=== PATIENT | female | born 1940 | race Caucasian/White ===

== ENCOUNTER 2016-11-08 13:30 | Outpatient (RCR) | payer MEDICARE, BC ==
[2016-07-16 18:36] VITALS: BP 151/73
[~2016-11-08 13:30] MED LIST: ALDACTONE25 M1 PO; ASPIRIN E.C. 8181 MG; ATENOLOL50 MG PO; ATIVAN0.5 MG; ATIVAN0.5 MG PO; CALCIUM 600 W/V1 TAB; CIPRO 500MG TA500 MG PO; CIPRO HC OTIC S10 ML OT; CLOPIDOGREL; COLACE 100100 MG/CAP PO; COREG12.5 M1 PO; CYCLOBENZAPRINE10 MG PO; DESYREL; GLUCOSE PO; HUMULIN 70/3100 U/ML IJ; HUMULIN 70/3100 U/ML IN; Humalog SC; LANTUS PEN100 U/ML SC; LASIX20 MG PO; LASIX40 M1 PO; LEVOTHROID0.05 MG PO; LOSARTAN POTASS1 TA2; LOSARTAN POTASS50 MG PO; LOVENOX 4040 MG/0.4 SQ; MIRALAX PA17 GM/Dose PO; MULTIPLE VITAMI1 TA1 PO; NAPROSYN500 M1 PO; NATURE'S BLEND400 IU PO; NEUPRO2 MG/24 HR TD; NEURONTIN100 M1 PO; NEURONTIN300 M1 PO; NITROGLYCERIN0.4 M1 PO; NORCO 325 MG-51 TA1 PO; NORCO 325 MG-51 TAB PO; NOVOLOG FLEX100 U/ML SC; PERCOCET 325 MG1 TA2 PO; PREDNISONE20 M1 PO; RECLAST5 MG/1001 IV; REQUIP 0.5MG0.5 MG PO; ST. JOSEPH81 M2 PO; TYLENOL 325MG325 MG PO; TYLENOL WITH CO1 TA1 PO; ZOCOR40 MG; ZOFRAN ODT4 MG PO
[2016-12-19] MEDS ORDERED: GOOD NEIGHBOR600 MG PO (12:27)
[2016-12-19] MEDS ORDERED: PREDNISONE10 MG (12:28)
[2016-12-19] MEDS ORDERED: IPRATROPIUM BROM3 M1 INH (12:29)
[2016-12-19] MEDS ORDERED: BENZONATATE200 MG PO (12:31)
[2016-12-19] MEDS ORDERED: PROAIR HFA0.09 MG/AC INH (12:32)
[2016-12-19] MEDS ORDERED: LYRICA 150MG C150 MG PO (13:07)
[2016-12-19] MEDS ORDERED: XOPENEX 1.1.25 MG/3 IH (14:55)
[2016-12-19] MEDS ORDERED: TUSS PO (14:55)
== END 2017-01-07 | disposition home or self-care (01) ==
LOC: PT
DX: Z47.89 Encounter for other orthopedic aftercare (principal); Z98.890 Other specified postprocedural states; R26.9 Unspecified abnormalities of gait and mobility

== ENCOUNTER 2016-12-19 11:40 | Emergency (ER) | payer MEDICARE, BC ==
[2016-12-19] MEDS ORDERED: GOOD NEIGHBOR600 MG PO (12:27)
[2016-12-19] MEDS ORDERED: PREDNISONE10 MG (12:28)
[2016-12-19] MEDS ORDERED: IPRATROPIUM BROM3 M1 INH (12:29)
[2016-12-19] MEDS ORDERED: BENZONATATE200 MG PO (12:31)
[2016-12-19] MEDS ORDERED: PROAIR HFA0.09 MG/AC INH (12:32)
[2016-12-19] MEDS ORDERED: LYRICA 150MG C150 MG PO (13:07)
[2016-12-19] MEDS ORDERED: XOPENEX 1.1.25 MG/3 IH (14:55)
[2016-12-19] MEDS ORDERED: TUSS PO (14:55)
== END 2016-12-19 15:16 | disposition home or self-care (01) ==
LOC: ED 11:40
DX: R06.00 Dyspnea, unspecified (principal); J12.1 Respiratory syncytial virus pneumonia; E11.9 Type 2 diabetes mellitus without complications; Z79.4 Long term (current) use of insulin; Z79.82 Long term (current) use of aspirin

== ENCOUNTER 2017-01-13 13:39 | Outpatient (RCR) | payer MEDICARE, BC ==
[2016-12-19 15:07] VITALS: BP 104/45
[~2017-01-13 13:39] MED LIST changes: +BENZONATATE200 MG PO; +GOOD NEIGHBOR600 MG PO; +IPRATROPIUM BROM3 M1 INH; +LYRICA 150MG C150 MG PO; +PREDNISONE10 MG; +PROAIR HFA0.09 MG/AC INH; +TUSS PO; +XOPENEX 1.1.25 MG/3 IH
== END 2017-02-25 14:36 | disposition home or self-care (01) ==
LOC: PT 13:39
DX: Z98.890 Other specified postprocedural states (principal); R26.9 Unspecified abnormalities of gait and mobility

== ENCOUNTER → 2017-04-22 | Outpatient (CLI) | payer MEDICARE, BC ==
[2016-12-19 15:07] VITALS: BP 104/45
== END ==
LOC: MAMMO 08:58
DX: Z12.31 Encounter for screening mammogram for malignant neoplasm of breast (principal)
CPT/HCPCS: G0202

== ENCOUNTER → 2017-05-13 | Outpatient (CLI) | payer MEDICARE, BC ==
[2016-12-19 15:07] VITALS: BP 104/45
== END ==
LOC: RAD 14:10 → MAMMO 14:10 → RAD 14:42 → MAMMO 14:51
DX: Z13.820 Encounter for screening for osteoporosis (principal); M85.832 Other specified disorders of bone density and structure, left forearm

== ENCOUNTER 2017-06-11 15:00 | Outpatient (RCR) | payer MEDICARE, BC ==
[2016-12-19 15:07] VITALS: BP 104/45
== END 2017-08-26 | disposition home or self-care (01) ==
LOC: PT
DX: M25.552 Pain in left hip (principal)
CPT/HCPCS: G8978-GP; G8979-GP

== ENCOUNTER → 2018-05-05 | Outpatient (CLI) | payer MEDICARE, BC ==
[2016-12-19 15:07] VITALS: BP 104/45
== END ==
LOC: MAMMO 09:44
DX: Z12.31 Encounter for screening mammogram for malignant neoplasm of breast (principal)

== ENCOUNTER → 2019-01-07 | Outpatient (CLI) | payer MEDICARE, BC ==
[2019-01-06 10:56] VITALS: BP 114/59
[~2019-01-07] MED LIST changes: +ATORVASTATIN CA40 MG PO; +BACTRIM DS 8001 TAB PO; +BASAGLAR K100 UNIT/1 SQ; +CALCIUM 600 +1 EAC2 PO; +CEPHALEXIN500 M1 PO; +CLOPIDOGREL75 M2 PO; +COZAAR 50MG50 MG/TAB PO; -DESYREL; +DESYREL50 MG PO; -LEVOTHROID0.05 MG PO; +LEVOTHYROXINE0.05 MG PO; -LOSARTAN POTASS50 MG PO; +NOVOLOG FLEX100 U/ML SQ; +PROLIA60 MG/ML SQ; +ST. JOSEPH ASPI81 M1 PO; -ST. JOSEPH81 M2 PO; +TORSEMIDE10 M1 PO; +TRAMADOL 50 MG TAB PO; +VALACYCLOVIR1 GM PO
[2019-01-07 11:19] LABS: HEMATOCRIT 36.1 % (37.0-47.0); HEMOGLOBIN 11.8 g/dL (12.5-16.0); MEAN PLATELET VOLUME 10.6 fl (7.4-10.4); RED BLOOD COUNT 4.1 M/mm3 (4.10-5.30); RED CELL DISTRIBUTION WIDTH 12.7 % (11.5-14.5); WHITE BLOOD COUNT 7.5 K/mm3 (4.8-10.8)
[2019-01-07 11:29] LABS: CALCIUM 9.4 mg/dL (8.4-10.2); POTASSIUM 5.4 mmol/L (3.6-5.0)
== END ==
LOC: LAB 10:47
PROVIDERS: Nurse Practitioner Primary Care
DX: L89.512 Pressure ulcer of right ankle, stage 2 (principal); Z48.00 Encounter for change or removal of nonsurgical wound dressing

== ENCOUNTER 2019-01-12 10:15 | Outpatient (RCR) | payer MEDICARE, BC ==
[2019-01-06 10:56] VITALS: BP 114/59
[2019-01-07 10:25] VITALS: BP 116/60
[2019-01-08 10:27] VITALS: BP 105/55
[2019-01-11 10:20] VITALS: BP 117/48
[~2019-01-12] VITALS: Ht 170.2 cm; Wt 78.1 kg
[2019-01-12 10:22] VITALS: BP 118/57
== END 2019-01-12 12:00 | disposition home or self-care (01) ==
LOC: AMSURD 10:15
DX: L89.522 Pressure ulcer of left ankle, stage 2 (principal); S91.105A Unspecified open wound of left lesser toe(s) without damage to nail, initial encounter

== ENCOUNTER → 2019-02-24 | Outpatient (CLI) | payer MEDICARE, BC ==
[2019-02-24 07:40] LABS: HEMATOCRIT 36.2 % (37.0-47.0); HEMOGLOBIN 11.5 g/dL (12.5-16.0); MEAN PLATELET VOLUME 10.6 fl (7.4-10.4); RED BLOOD COUNT 3.96 M/mm3 (4.10-5.30); RED CELL DISTRIBUTION WIDTH 14.2 % (11.5-14.5); WHITE BLOOD COUNT 6.1 K/mm3 (4.8-10.8)
[2019-02-24 07:50] LABS: ALBUMIN 3.8 g/dL (3.5-5.0); CALCIUM 9.2 mg/dL (8.4-10.2); POTASSIUM 4.3 mmol/L (3.6-5.0); TOTAL BILIRUBIN 0.6 mg/dL (0.2-1.3); TOTAL PROTEIN 6.5 g/dL (6.3-8.2)
== END ==
LOC: LAB 07:19
PROVIDERS: Internal Medicine Interventional Cardiology
DX: I99.8 Other disorder of circulatory system (principal)

== ENCOUNTER 2019-05-12 08:28 | Observation (INO) | payer MEDICARE, BC ==
[~2019-05-12] VITALS: Ht 170.2 cm; Wt 70.2 kg
[2019-05-12 09:33] LABS: POTASSIUM 4.7 mmol/L (3.5-5.1)
[2019-05-12 09:34] LABS: CALCIUM 10.1 mg/dL (8.3-10.5)
[2019-05-12 09:50] LABS: EOS # 0.1 (0.04-0.40); EOS % 1.5 % (1.0-5.0); HEMATOCRIT 38.8 % (37.0-47.0); HEMOGLOBIN 12.8 g/dL (12.5-16.0); LYMPH# 1.8 (1.50-4.00); MEAN CELL VOLUME 83 fl (78-100); MEAN CORPUSCULAR HEMOGLOBIN 27 pg (27-31); MEAN CORPUSCULAR HGB CONC 33 g/dL (33-37); MEAN PLATELET VOLUME 11.5 fl (7.4-10.4); MONO # 0.9 (0.20-0.80); PLATELET COUNT 208 K/mm3 (130-400); RED BLOOD COUNT 4.68 M/mm3 (4.10-5.30); RED CELL DISTRIBUTION WIDTH 13.7 % (11.5-14.5); TROPONIN-I 0.39 ng/mL (<0.030); WHITE BLOOD COUNT 7.8 K/mm3 (4.8-10.8)
[2019-05-12] MEDS ORDERED: ALDACTONE 25MG25 MG PO (10:00)
[2019-05-12 10:01] LABS: URINE APPEARANCE CLEAR; URINE BILIRUBIN NEGATIVE (NEGATIVE); URINE BLOOD NEGATIVE (NEGATIVE); URINE COLOR YELLOW; URINE GLUCOSE NEGATIVE (NEGATIVE); URINE KETONE NEGATIVE (NEGATIVE); URINE LEUKOCYTE ESTERASE NEGATIVE (NEGATIVE); URINE NITRATE NEGATIVE (NEGATIVE); URINE PROTEIN(semi-quant) NEGATIVE (NEGATIVE); URINE UROBILINOGEN NORMAL (NORMAL); URINE WBC 0-1 /hpf (0-3)
[2019-05-12 13:44] VITALS: BP 158/85
[2019-05-12 15:15] VITALS: BP 137/78
[2019-05-12] MEDS ORDERED: TYLENOL325 M1 PO (16:03)
[2019-05-12] MEDS ORDERED: COLACE100 M1 PO (16:04)
[2019-05-12] MEDS ORDERED: ZOFRAN4 M2 PO (16:05)
[2019-05-12 17:40] LABS: D-DIMER 0.82 mg/L FEU (0.15-0.50)
[2019-05-12 18:15] VITALS: BP 149/83
[2019-05-12 23:02] VITALS: BP 137/64
[2019-05-13 03:23] VITALS: BP 110/58
[2019-05-13 06:20] VITALS: BP 127/74
[2019-05-13 07:23] LABS: HEMATOCRIT 35.1 % (37.0-47.0); HEMOGLOBIN 11.2 g/dL (12.5-16.0); MEAN CELL VOLUME 85 fl (78-100); MEAN CORPUSCULAR HEMOGLOBIN 27 pg (27-31); MEAN CORPUSCULAR HGB CONC 32 g/dL (33-37); MEAN PLATELET VOLUME 10.6 fl (7.4-10.4); PLATELET COUNT 189 K/mm3 (130-400); RED BLOOD COUNT 4.12 M/mm3 (4.10-5.30); RED CELL DISTRIBUTION WIDTH 13.7 % (11.5-14.5); WHITE BLOOD COUNT 5.8 K/mm3 (4.8-10.8)
[2019-05-13 07:48] LABS: CALCIUM 8.9 mg/dL (8.3-10.5)
[2019-05-13 08:02] LABS: TROPONIN-I 0.32 ng/mL (<0.030)
[2019-05-13 08:19] LABS: LYMPHOCYTE 24 % (20-51); MONOCYTE 12 % (3-10); NEUTROPHILS 61 % (42-75)
[2019-05-13 11:03] VITALS: BP 131/77
[2019-05-13 15:12] VITALS: BP 122/52
[2019-05-13 18:31] VITALS: BP 145/74
[2019-05-13 23:32] VITALS: BP 132/79
[2019-05-14 03:36] VITALS: BP 140/66
[2019-05-14 06:17] VITALS: BP 129/71
== END 2019-05-14 07:43 | disposition short-term general hospital (02) ==
LOC: ED 08:28 → MED/SURG 12:27
PROVIDERS: ADMIT Physician Assistant
DX: R79.89 Other specified abnormal findings of blood chemistry (principal); R11.2 Nausea with vomiting, unspecified; I25.10 Atherosclerotic heart disease of native coronary artery without angina pectoris; I73.9 Peripheral vascular disease, unspecified; Z95.828 Presence of other vascular implants and grafts; I11.0 Hypertensive heart disease with heart failure; I50.9 Heart failure, unspecified; E11.9 Type 2 diabetes mellitus without complications; Z79.4 Long term (current) use of insulin; Z79.899 Other long term (current) drug therapy; Z95.1 Presence of aortocoronary bypass graft; E78.5 Hyperlipidemia, unspecified; Z89.422 Acquired absence of other left toe(s)
CPT/HCPCS: G0378; J1650; J2405; J3010; J7030; Q9967